=== PATIENT | female | born 1955 | race Caucasian/White ===

== ENCOUNTER 2016-07-16 21:17 | Emergency (ER) | payer BC ==
--- NOTE | 2016-07-16 21:24 | PDOC ---
History of Present Illness - General Chief Complaint: Pain, Acute Stated Complaint: LLQ PAIN RADIATING INTO BACK Time Seen by Provider: 07/16/16 21:23 - History of Present Illness Initial Comments: 07/16/16 22:36 This otherwise healthy 61-year-old woman presents with one-week history of intermittent left lower quadrant abdominal/left flank pain. Pain began suddenly awakening her from sleep one week ago. Since then, the pain has been intermittent, worse after eating and better when patient is in the prone position. She also has had intermittent mild nausea with a few episodes of vomiting (no hematemesis/coffee grounds). She has been constipated during this time, moving small amounts of hard stool (last BM today). Patient states that she has felt "bloated" for the last week No fever or chills noted. She denies dysuria/urinary frequency or hematuria. No previous history of this type of pain. She has not had previous colonoscopy and does not know if she has diverticular disease. No history of kidney stones or other renal issues. Patient has a long history of obesity and has been part of a weight loss program for the last 6 months: States that she has lost approximatelly 50 pounds Past medical history Obesity Hyperreactive airway Medication Albuterol inhaler as needed Past History - Past Medical History Allergies/Adverse Reactions: Allergies Allergy/AdvReac Type Severity Reaction Status Date / Time No Known Allergies Allergy Verified 07/16/16 21:18 Home Medications: Ambulatory Orders Albuterol Sulfate Inhaler - [Ventolin HFA Inhaler -] 1 - 2 inh PO QID PRN Oxycodone HCl/Acetaminophen [Percocet 5-325 mg Tablet] 1 tab PO Q6H PRN #10 tablet MDD 4 tabs 07/16/16 Tamsulosin HCl [Flomax] 0.4 mg PO DAILY #20 cap.er.24h 07/16/16 Anemia: No Asthma: No (HYPER-REACTIVE AIRWAY NO DX OF ASTHMA) Cancer: No Cardiac Disorders: No CVA: No COPD: No CHF: No Dementia: No Diabetes: No GI Disorders: No Disorders: No HTN: No Hypercholesterolemia: No Liver Disease: No Seizures: No Thyroid Disease: No - Surgical History Abdominal Surgery: No Appendectomy: No Cardiac Surgery: No Cholecystectomy: No Lung Surgery: No Neurologic Surgery: No Orthopedic Surgery: Yes (Left Knee Arthroscopy) - Psycho/Social/Smoking Cessation Hx Smoking History: Never smoked Hx Alcohol Use: Yes (SOCIAL) Drug/Substance Use Hx: No Substance Use Type: Alcohol Hx Substance Use Treatment: No Review of Systems - Review of Systems Able to Perform ROS?: Yes Comments:: 12 point review of systems is negative except for what is noted in the history of present illness *Physical Exam - Physical Exam Comments: GENERAL: The patient is awake, alert, and fully oriented;mild distress secondary to left flank pain HEAD: Normal with no signs of trauma. EYES: Pupils equal, round and reactive to light, extraocular movements intact, sclera anicteric, conjunctiva clear with no pallor. ENT: moist mucous membranes. Ears normal, nares patent, oropharynx clear without exudates. NECK: Normal range of motion, supple without lymphadenopathy, JVD, or masses. LUNGS: Breath sounds equal, clear to auscultation bilaterally. No wheeze/ crackles HEART: Regular rate and rhythm, normal S1 and S2 without murmur or rub. ABDOMEN: Soft/nontender/nondistended. BS wnl. mild LLQ tenderness No guarding or rebound. No palpable masses. No hepatosplenomegaly. EXTREMITIES: Normal range of motion, no edema. No clubbing or cyanosis. No cords, erythema, or tenderness. NEUROLOGICAL: Cranial nerves II through XII grossly intact. Normal speech, normal gait. PSYCH: Normal mood, normal affect. SKIN: Warm, Dry, normal turgor, no rashes or lesions noted. ED Treatment Course - LABORATORY CBC & Chemistry Diagram: 07/16/16 22:00 07/16/16 22:00 Progress Note - Progress Note Progress Note: UA shows 5-10 RBC/ 5-10 WBC/ few epi//few bact Patient given 30mg Toradol IV and 1 liter NS IV CBC/ Chemistry profile sent. Medical Decision Making - Medical Decision Making Patient reports significant relief in her pain after Toradol IV. Noncontrast renal stone protocol CT performed. Study reveals a 6 mm calcification within the proximal third of the left ureter with a mild degree of hydronephrosis/hydroureter proximal to the stone. There are 2 small additional calcifications within the lower pole of the left collecting system. No other abnormalities of the genitourinary tract are present. No other significant abnormalities seen on the study. Results discussed with the patient. Patient states that she is mildly nauseous but does not need any medication at this time. Also, pain is tolerable. Patient given Flomax 0.4 mg by mouth. Patient has never seen a urologist. Dr. Gallardo urology group referral information will be given to the patient; she has been advised to call the office tomorrow to be seen within the next few days. Because the size of her ureteral stone is at the borderline level for possible need of intervention, timely consultation with urology is advised. Meanwhile, patient will have prescriptions for Percocet 5/325 as needed for severe pain (prescription for #10 tabs transmitted to pharmacy) and Flomax 0.4 mg daily. She should drink plenty of fluids. She should return to the ER if she has severe, persistent pain or develops vomiting/fever. *DC/Admit/Observation/Transfer Diagnosis at time of Disposition: Renal colic on left side - Discharge Dispostion Disposition: HOME Condition at time of disposition: Stable - Prescriptions Prescriptions: Tamsulosin HCl [Flomax] 0.4 mg PO DAILY #20 cap.er.24h Oxycodone HCl/Acetaminophen [Percocet 5-325 mg Tablet] 1 tab PO Q6H PRN #10 tablet MDD 4 tabs PRN Reason: Severe Pain - Referrals Referrals: Kali Gallardo MD [Staff Physician] - Call tomorrow - Patient Instructions Printed Discharge Instructions: Kidney Stones -- Adult Additional Instructions: drink plenty of water flomax 0.4mg daily Motrin/Aleve/Tylenol as needed for mild to moderate pain Percocet 5/325 as needed for severe pain followup with Dr Paulina madsen(urology): call tomorrow return to ER if pain is severe or vomiting occurs
[2016-07-16 21:29] VITALS: BP 149/88; PULSE 92; TEMP 97.7; BMI 40.9
[2016-07-16 21:38] LABS: PH,URINE 5.5 (4.5-8); URINE APPEARANCE Clear; URINE BILIRUBIN 1+ (NEGATIVE); URINE BLOOD Trace-intact (NEGATIVE); URINE COLOR YELLOW; URINE GLUCOSE (UA) Negative (NEGATIVE); URINE KETONE 1+ (NEGATIVE); URINE LEUK ESTERASE 1+ (NEGATIVE); URINE NITRITE Negative (NEGATIVE); URINE PROTEIN 1+ (NEGATIVE); URINE UROBILINOGEN 0.2 E.U/dl (0.2-1.0)
[2016-07-16] MEDS ORDERED: KETOROLAC TROMETHAMINE 30 MG/1 ML VIAL ONE (21:56)
[2016-07-16] MEDS ORDERED: SODIUM CHLORIDE 1,000 ML IV STA (21:56)
[2016-07-16] MEDS ORDERED: KETOROLAC TROMETHAMINE 30 MG/1 ML VIAL IVPUSH ONE (21:56)
[2016-07-16 22:08] LABS: BASOPHIL 0.4 % (0-2.0); MCHC 32.3 g/dl (32.0-36.0); MEAN CELL VOLUME 92.9 fl (80-96); MEAN PLT VOLUME 8.6 fl (7.5-11.1); NEUTROPHILS 60.9 % (42.8-82.8); PLATELET COUNT 248 K/MM3 (134-434); RDW 12.5 % (11.6-15.6)
[2016-07-16 22:11] LABS: URINE BACTERIA FEW /hpf (NEGATIVE)
[2016-07-16 22:25] LABS: ALBUMIN 4.4 g/dl (3.5-5.0); ALK PHOS 74 U/L (32-92); ANION GAP 12 (8-16); BILIRUBIN,TOTAL 0.5 mg/dl (0.2-1.0); CO2 28 mmol/L (22-28); CREATININE 0.9 mg/dl (0.6-1.3); GLUCOSE,RANDOM 108 mg/dl (74-106); SGOT/AST 25 U/L (10-42); SGPT/ALT 21 U/L (10-40); TOT PROT 7.5 g/dl (6.4-8.3)
[2016-07-16] MEDS ORDERED: TAMSULOSIN HCL 0.4 MG CAP.ER.24H (FP) ONE (23:35)
[2016-07-16] MEDS ORDERED: TAMSULOSIN HCL 0.4 MG CAP.ER.24H (FP) PO ONE (23:42)
[2016-07-16] MEDS ORDERED: OXYCODONE/APAP 5/325MG COMBO TABLET ONE (23:43)
== END 2016-07-16 23:51 | disposition home or self-care (01) ==
LOC: FER 21:17
PROC: 3E0333Z Introduction of Anti-inflammatory into Peripheral Vein, Percutaneous Approach (ICD-10-PCS; principal; 2016-07-16)
PROC: 3E0337Z Introduction of Electrolytic and Water Balance Substance into Peripheral Vein, Percutaneous Approach (ICD-10-PCS; 2016-07-16)
DX: N23 Unspecified renal colic (principal); J98.9 Respiratory disorder, unspecified; E66.9 Obesity, unspecified; Z68.41 Body mass index [BMI] 40.0-44.9, adult
CPT/HCPCS: 36415; 74176; 80053; 81003; 81015; 85025; 99281-25

== ENCOUNTER 2023-02-22 19:09 | Emergency (ER) | payer OTHER ==
[2023-02-22 19:45] VITALS: BP 140/66; PULSE 88; RESP 16; TEMP 98.4; BMI 29.5
[2023-02-22] MEDS ORDERED: RABIES VACCINE (PCEC)/PF 2.5 UNIT/VIAL IM ONE ×2 (19:46→19:55)
[2023-02-22] MEDS ORDERED: RABIES IMMUNE GLOBULIN 300 UNITS/1 ML VIAL IM ONE (19:46)
== END 2023-02-22 20:40 | disposition home or self-care (01) ==
LOC: FER 19:09
PROC: 3E0234Z Introduction of Serum, Toxoid and Vaccine into Muscle, Percutaneous Approach (ICD-10-PCS; principal; 2023-02-22)
PROC: 3E0234Z Introduction of Serum, Toxoid and Vaccine into Muscle, Percutaneous Approach (ICD-10-PCS; 2023-02-22)
DX: Z20.3 Contact with and (suspected) exposure to rabies (principal)
CPT/HCPCS: 90375; 90675; 99284-25

== ENCOUNTER 2023-02-25 11:18 | Emergency (ER) | payer OTHER ==
[2023-02-25 11:24] VITALS: BP 119/72; PULSE 88; RESP 15; TEMP 98.5; BMI 29.5
[2023-02-25] MEDS ORDERED: RABIES VACCINE (PCEC)/PF 2.5 UNIT/VIAL IM ONE ×2 (11:33→11:35)
== END 2023-02-25 11:47 | disposition home or self-care (01) ==
LOC: FER 11:18
PROC: 3E0234Z Introduction of Serum, Toxoid and Vaccine into Muscle, Percutaneous Approach (ICD-10-PCS; principal; 2023-02-25)
DX: Z20.3 Contact with and (suspected) exposure to rabies (principal)
CPT/HCPCS: 90675; 99281-25

== ENCOUNTER 2023-04-14 11:11 | Inpatient (IN) | payer OTHER, MEDICARE ==
[2023-04-14] MEDS ORDERED: SODIUM CHLORIDE 1,000 ML IV ONE ×2 (11:46→15:06)
[2023-04-14] MEDS ORDERED: MECLIZINE HCL 25 MG TABLET (FP) PO ONE (11:46)
[2023-04-14] MEDS ORDERED: METOCLOPRAMIDE HCL INJECTION 10 MG/2 ML VIAL IVPUSH ONE (11:46)
[2023-04-14] MEDS ORDERED: MECLIZINE HCL 25 MG TABLET (FP) ONE (11:53)
[2023-04-14] MEDS ORDERED: METOCLOPRAMIDE HCL INJECTION 10 MG/2 ML VIAL ONE (11:53)
[2023-04-14 12:09] LABS: HEMATOCRIT 41.4 % (32.4-45.2); HEMOGLOBIN 13.6 G/dL (10.7-15.3); MCH 30.7 pg (25.7-33.7); MCHC 32.9 g/dl (32.0-36.0); MEAN CELL VOLUME 93.2 fl (80-96); PLATELET COUNT 221.2 10^3/uL (134-434); RBC 4.44 10^6/uL (3.60-5.2); RDW 14.1 % (11.6-15.6); WHITE BLOOD COUNT 6.8 10^3/uL (4.0-10.8)
[2023-04-14 12:44] LABS: ALBUMIN 3.9 g/dl (3.4-5.0); BILIRUBIN,TOTAL 0.5 mg/dl (0.2-1); CALCIUM 9.6 mg/dl (8.5-10.1); POTASSIUM 3.7 mmol/L (3.5-5.1); TOT PROT 6.1 g/dl (6.4-8.2)
[2023-04-14 12:46] LABS: PLATELET ESTIMATE ADEQUATE
[2023-04-14] MEDS ORDERED: ALBUTEROL SO4 0.083% IH SOL 2.5 MG/3 ML VIAL.NEB. NEB PRN (18:38)
[2023-04-14] MEDS ORDERED: SODIUM CHLORIDE 250 ML IV STA (20:48)
[2023-04-14 22:28] VITALS: BMI 28.5
[2023-04-15] MEDS ORDERED: ACETAMINOPHEN 500 MG TABLET (FP) PO PRN (07:45)
[2023-04-15] MEDS ORDERED: ALBUTEROL SO4 0.083% IH SOL 2.5 MG/3 ML VIAL.NEB. NEB PRN (07:46)
[2023-04-15 07:49] LABS: HEMATOCRIT 39.9 % (32.4-45.2); HEMOGLOBIN 12.8 G/dL (10.7-15.3); MCH 30.2 pg (25.7-33.7); MCHC 32.1 g/dl (32.0-36.0); MEAN PLT VOLUME 8.9 fl (7.5-11.1); PLATELET COUNT 199.4 10^3/uL (134-434); RBC 4.24 10^6/uL (3.60-5.2); RDW 14.5 % (11.6-15.6); WHITE BLOOD COUNT 4.4 10^3/uL (4.0-10.8)
[2023-04-15 08:48] LABS: ALBUMIN 3.6 g/dl (3.4-5.0); BILIRUBIN,TOTAL 0.5 mg/dl (0.2-1); CALCIUM 8.7 mg/dl (8.5-10.1); CREATININE 0.8 mg/dl (0.6-1.3); MAGNESIUM 2.1 mg/dL (1.8-2.4); POTASSIUM 3.8 mmol/L (3.5-5.1); TOT PROT 5.4 g/dl (6.4-8.2)
[2023-04-15] MEDS: MONTELUKAST NA 5 MG TAB.CHEW PO SCH (09:39)
[2023-04-15] MEDS: ENOXAPARIN NA (PORCINE) 40 MG/0.4 ML DISP.SYRIN SQ SCH (09:40)
[2023-04-16 01:57] VITALS: RESP 18
[2023-04-16 07:59] LABS: HEMATOCRIT 37.1 % (32.4-45.2); HEMOGLOBIN 12.2 G/dL (10.7-15.3); MCH 30.7 pg (25.7-33.7); MEAN CELL VOLUME 93.2 fl (80-96); PLATELET COUNT 187.5 10^3/uL (134-434); RBC 3.98 10^6/uL (3.60-5.2); RDW 13.6 % (11.6-15.6); WHITE BLOOD COUNT 4.6 10^3/uL (4.0-10.8)
[2023-04-16 08:44] VITALS: TEMP 98.4
[2023-04-16 08:44] LABS: ALBUMIN 3.5 g/dl (3.4-5.0); BILIRUBIN,TOTAL 0.4 mg/dl (0.2-1); CALCIUM 8.9 mg/dl (8.5-10.1); CREATININE 0.8 mg/dl (0.6-1.3); POTASSIUM 4.3 mmol/L (3.5-5.1); TOT PROT 5.4 g/dl (6.4-8.2)
[2023-04-16 13:57] VITALS: BP 123/61; PULSE 87
[2023-04-16] MEDS: MONTELUKAST NA 5 MG TAB.CHEW PO SCH (14:41)
[2023-04-16] MEDS: ENOXAPARIN NA (PORCINE) 40 MG/0.4 ML DISP.SYRIN SQ SCH (14:42)
== END 2023-04-16 17:45 | disposition home or self-care (01) | DRG 316 ==
LOC: FER 11:11 → FM/S 18:08 → OBSVTOIN 18:34 → INTOOBSV 18:34 → UNDODISIN 04-16 17:45 → UNDODISOB 04-16 17:45
PROVIDERS: ADMIT Student in an Organized Health Care Education/Training Program
DX: I95.9 Hypotension, unspecified (principal); J45.909 Unspecified asthma, uncomplicated; F41.8 Other specified anxiety disorders
CPT/HCPCS: 0241U-QW; 36415; 70450-TC; 70498-TC; 71045-TC-FY; 71250-TC; 78452-TC; 80053; 80061; 81003; 81015; 82550; 83735; 84484; 85027; 85379; 93005; 93017; 93306-TC; 99285-25; A9502; G0378; Q9967

== ENCOUNTER 2024-08-01 09:49 | Inpatient (IN) | payer OTHER ==
[2024-08-01 10:49] LABS: INR 1.07 (0.83-1.09); PROTHROMBIN TIME (PATIENT) 12.2 SEC (9.7-13.0)
[2024-08-01 10:50] LABS: HEMATOCRIT 32.3 % (32.4-45.2); HEMOGLOBIN 10.8 G/dL (10.7-15.3); MCHC 33.4 g/dl (32.0-36.0); MEAN CELL VOLUME 92.7 fl (80-96); MEAN PLT VOLUME 9.5 fl (7.5-11.1); RBC 3.48 10^6/uL (3.60-5.2); RDW 13.3 % (11.6-15.6); WHITE BLOOD COUNT 7.5 10^3/uL (4.0-10.8)
[2024-08-01 10:51] LABS: ACTIVATED PTT 27.4 SECONDS (25.2-36.5)
[2024-08-01] MEDS ORDERED: ACETAMINOPHEN INJECTION 100 ML ONE (10:51)
[2024-08-01 10:54] LABS: PLATELET ESTIMATE ADEQUATE
[2024-08-01] MEDS: ACETAMINOPHEN 1000 MG/100 ML BAG IVPB ONE (10:59)
[2024-08-01 11:00] LABS: ALBUMIN 3.7 g/dl (3.4-5.0); BILIRUBIN,TOTAL 0.6 mg/dl (0.2-1); CALCIUM 8.6 mg/dl (8.5-10.1); CREATININE 0.9 mg/dl (0.6-1.3); POTASSIUM 4.6 mmol/L (3.5-5.1); TOT PROT 5.7 g/dl (6.4-8.2)
[2024-08-01] MEDS ORDERED: morphine CARPU-JECT 4 MG/1 ML DISP.SYRIN IVPUSH ONE (15:06)
[2024-08-01] MEDS: morphine CARPU-JECT 2 MG/1 ML DISP.SYRIN IVPUSH ONE (15:10)
[2024-08-01] MEDS ORDERED: TRANEXAMIC ACID 1000 MG/10 ML VIAL ONE (18:03)
[2024-08-01 18:09] LABS: HEMATOCRIT 29.2 % (32.4-45.2); HEMOGLOBIN 9.9 G/dL (10.7-15.3); MCH 31.4 pg (25.7-33.7); MCHC 33.9 g/dl (32.0-36.0); MEAN CELL VOLUME 92.6 fl (80-96); MEAN PLT VOLUME 8.9 fl (7.5-11.1); PLATELET COUNT 165.7 10^3/uL (134-434); RBC 3.15 10^6/uL (3.60-5.2); RDW 13.8 % (11.6-15.6)
[2024-08-01] MEDS: SODIUM CHLORIDE 0.9% 500 ML INFUS.BAG IV ONE (18:13)
[2024-08-01] MEDS: TRANEXAMIC ACID 1000 MG/10 ML VIAL IVPUSH ONE (18:13)
[2024-08-01 18:30] LABS: PLATELET ESTIMATE ADEQUATE
[2024-08-01] MEDS ORDERED: morphine SULFATE 4 MG/ML VIAL ONE (18:51)
[2024-08-01] MEDS: morphine CARPU-JECT 4 MG/1 ML DISP.SYRIN IVPUSH ONE (19:04)
[2024-08-01] MEDS: MUPIROCIN 2% TOPICAL OINTMENT FOR DECOLONIZATION NS SCH (23:20)
[2024-08-01] MEDS: LACTATED RINGERS SOLUTION 1,000 ML/1,000 ML INFUS.BAG IV SCH (23:30)
[2024-08-02] MEDS: TRANEXAMIC ACID 1000 MG/10 ML VIAL IVPUSH ONE ×2 (01:02→10:00)
[2024-08-02 06:44] LABS: INR 1.17 (0.83-1.09); PROTHROMBIN TIME (PATIENT) 12.9 SEC (9.7-13.0)
[2024-08-02 06:47] LABS: ACTIVATED PTT 27.4 SECONDS (25.2-36.5)
[2024-08-02 06:50] LABS: BASO % 0.6 % (0-2.0); EOS % 1.4 % (0-4.5); HEMATOCRIT 25.8 % (32.4-45.2); HEMOGLOBIN 8.6 GM/dL (10.7-15.3); LYMPH % 24.3 % (8-40); MCH 30.8 pg (25.7-33.7); MCHC 33.2 g/dl (32.0-36.0); MEAN CELL VOLUME 92.8 fl (80-96); MEAN PLT VOLUME 8.7 fl (7.5-11.1); MONO % 10.1 % (3.8-10.2); NEUT % 63.6 % (42.8-82.8); PLATELET COUNT 142 10^3/uL (134-434); RBC 2.78 M/mm3 (3.60-5.2); RDW 13.2 % (11.6-15.6); WHITE BLOOD COUNT 4.9 K/mm3 (4.0-10.0)
[2024-08-02 07:00] LABS: ALBUMIN 3.1 g/dl (3.4-5.0); BLOOD UREA NITROGEN 24.1 mg/dL (7-18); CALCIUM 8.3 mg/dL (8.5-10.1)
[2024-08-02 07:04] LABS: CREATININE 0.7 mg/dL (0.55-1.3); PHOSPHOROUS 3.8 mg/dL (2.5-4.9)
[2024-08-02 07:05] LABS: BILIRUBIN,TOTAL 0.7 mg/dL (0.2-1); TOT PROT 5.4 g/dl (6.4-8.2)
[2024-08-02] MEDS: BUDESONIDE/FORMETEROL FUMARATE 160/4.5 mcg INHALER IH SCH (09:59)
[2024-08-02] MEDS: ACETAMINOPHEN 1000 MG/100 ML BAG IVPB PRN (10:12)
[2024-08-02 12:55] LABS: BASO % 0.3 % (0-2.0); EOS % 0.8 % (0-4.5); HEMATOCRIT 25.6 % (32.4-45.2); HEMOGLOBIN 8.5 GM/dL (10.7-15.3); LYMPH % 15.3 % (8-40); MCH 30.3 pg (25.7-33.7); MCHC 33.1 g/dl (32.0-36.0); MEAN CELL VOLUME 91.7 fl (80-96); MEAN PLT VOLUME 8.8 fl (7.5-11.1); MONO % 9.9 % (3.8-10.2); NEUT % 73.7 % (42.8-82.8); PLATELET COUNT 147 10^3/uL (134-434); RBC 2.79 M/mm3 (3.60-5.2); RDW 13.3 % (11.6-15.6); WHITE BLOOD COUNT 5.8 K/mm3 (4.0-10.0)
[2024-08-02 18:23] LABS: BASO % 0.5 % (0-2.0); EOS % 0.5 % (0-4.5); HEMATOCRIT 23.5 % (32.4-45.2); HEMOGLOBIN 7.9 GM/dL (10.7-15.3); LYMPH % 17.9 % (8-40); MCH 30.6 pg (25.7-33.7); MCHC 33.7 g/dl (32.0-36.0); MEAN CELL VOLUME 91.1 fl (80-96); MEAN PLT VOLUME 8.2 fl (7.5-11.1); MONO % 10.9 % (3.8-10.2); NEUT % 70.2 % (42.8-82.8); PLATELET COUNT 136 10^3/uL (134-434); RBC 2.58 M/mm3 (3.60-5.2); WHITE BLOOD COUNT 5.9 K/mm3 (4.0-10.0)
[2024-08-02] MEDS: CHLORHEXIDINE GLUCONATE 4% CLEANSER FOR DECOLONIZATION TP SCH (21:37)
[2024-08-02] MEDS: HYDROmorphone HCL CARPU-JECT 2 MG/1 ML DISP.SYRIN IVPUSH PRN (22:59)
[2024-08-03 00:33] LABS: BASO % 0.4 % (0-2.0); EOS % 0.9 % (0-4.5); HEMATOCRIT 23.5 % (32.4-45.2); HEMOGLOBIN 7.9 GM/dL (10.7-15.3); LYMPH % 16.1 % (8-40); MCH 30.2 pg (25.7-33.7); MCHC 33.4 g/dl (32.0-36.0); MEAN CELL VOLUME 90.5 fl (80-96); MEAN PLT VOLUME 8.5 fl (7.5-11.1); MONO % 11.1 % (3.8-10.2); NEUT % 71.5 % (42.8-82.8); PLATELET COUNT 139 10^3/uL (134-434); RDW 13.3 % (11.6-15.6); WHITE BLOOD COUNT 6.7 K/mm3 (4.0-10.0)
[2024-08-03 06:52] LABS: CALCIUM 8.2 mg/dL (8.5-10.1)
[2024-08-03 06:53] LABS: BLOOD UREA NITROGEN 14.3 mg/dL (7-18); MAGNESIUM 1.7 mg/dL (1.8-2.4)
[2024-08-03 06:56] LABS: CREATININE 0.5 mg/dL (0.55-1.3); PHOSPHOROUS 3.4 mg/dL (2.5-4.9)
[2024-08-03 06:57] LABS: BILIRUBIN,TOTAL 0.9 mg/dL (0.2-1)
[2024-08-03 06:58] LABS: TOT PROT 5.6 g/dl (6.4-8.2)
[2024-08-03 07:08] LABS: BASO % 0.3 % (0-2.0); EOS % 1.1 % (0-4.5); HEMATOCRIT 25.4 % (32.4-45.2); HEMOGLOBIN 8.6 GM/dL (10.7-15.3); MCH 30.7 pg (25.7-33.7); MCHC 33.9 g/dl (32.0-36.0); MEAN CELL VOLUME 90.7 fl (80-96); MEAN PLT VOLUME 8.6 fl (7.5-11.1); MONO % 8.8 % (3.8-10.2); NEUT % 83.8 % (42.8-82.8); PLATELET COUNT 146 10^3/uL (134-434); RDW 13.1 % (11.6-15.6); WHITE BLOOD COUNT 8.8 K/mm3 (4.0-10.0)
[2024-08-03] MEDS: ACETAMINOPHEN 1000 MG/100 ML BAG IVPB PRN (08:18)
[2024-08-03] MEDS: MAGNESIUM 2GM/50ML STERILE WATER IVPB IVPB ONE (09:06)
[2024-08-03] MEDS ORDERED: DOCUSATE SODIUM 100 MG CAPSULE (FP) PO PRN (10:02)
[2024-08-03] MEDS: POLYETHYLENE GLYCOL (HEALTHYLAX) 3350 17 GM PACKET PO SCH (10:16)
[2024-08-03] MEDS ORDERED: ERGOCALCIFEROL (VIT D2) 50,000 UNIT (1.25 MG) CAPSULE PO SCH (11:00)
[2024-08-03] MEDS: HYDROmorphone HCL CARPU-JECT 2 MG/1 ML DISP.SYRIN IVPUSH PRN (12:04)
[2024-08-03 12:41] VITALS: BMI 23.8
[2024-08-03] MEDS: ALBUTEROL SO4 HFA INHALER IH SCH (13:47)
[2024-08-03 15:43] LABS: HEMATOCRIT 23.4 % (32.4-45.2); HEMOGLOBIN 7.8 GM/dL (10.7-15.3); MCH 30.4 pg (25.7-33.7); MCHC 33.4 g/dl (32.0-36.0); MEAN PLT VOLUME 8.5 fl (7.5-11.1); PLATELET COUNT 142 10^3/uL (134-434); RBC 2.57 M/mm3 (3.60-5.2); RDW 13.1 % (11.6-15.6)
[2024-08-03] MEDS: ERGOCALCIFEROL (VIT D2) 50,000 UNIT (1.25 MG) CAPSULE PO SCH (16:20)
[2024-08-03] MEDS: BUDESONIDE/FORMETEROL FUMARATE 160/4.5 mcg INHALER IH SCH (21:15)
[2024-08-03] MEDS: SENNOSIDES 8.8 MG/5 ML SYRUP PO SCH (21:28)
[2024-08-03] MEDS: MONTELUKAST NA 10 MG TABLET PO SCH (21:29)
[2024-08-04 06:42] LABS: BASO % 0.4 % (0-2.0); EOS % 3.6 % (0-4.5); HEMATOCRIT 23.7 % (32.4-45.2); HEMOGLOBIN 7.9 GM/dL (10.7-15.3); LYMPH % 14.2 % (8-40); MCH 30.3 pg (25.7-33.7); MCHC 33.2 g/dl (32.0-36.0); MEAN CELL VOLUME 91.4 fl (80-96); MEAN PLT VOLUME 8.7 fl (7.5-11.1); MONO % 11.1 % (3.8-10.2); NEUT % 70.7 % (42.8-82.8); PLATELET COUNT 152 10^3/uL (134-434); RBC 2.59 M/mm3 (3.60-5.2); RDW 12.9 % (11.6-15.6); WHITE BLOOD COUNT 5.8 K/mm3 (4.0-10.0)
[2024-08-04 06:53] LABS: POTASSIUM 3.8 mmol/L (3.5-5.1)
[2024-08-04 06:56] LABS: ALBUMIN 2.8 g/dl (3.4-5.0); BLOOD UREA NITROGEN 10.1 mg/dL (7-18); CALCIUM 8.1 mg/dL (8.5-10.1); MAGNESIUM 1.9 mg/dL (1.8-2.4)
[2024-08-04 06:59] LABS: CREATININE 0.5 mg/dL (0.55-1.3); PHOSPHOROUS 2.5 mg/dL (2.5-4.9)
[2024-08-04 07:01] LABS: BILIRUBIN,TOTAL 0.7 mg/dL (0.2-1); TOT PROT 5.2 g/dl (6.4-8.2)
[2024-08-04 16:23] VITALS: RESP 18
[2024-08-04 16:37] LABS: BASO % 0.3 % (0-2.0); HEMATOCRIT 24.5 % (32.4-45.2); HEMOGLOBIN 8.2 GM/dL (10.7-15.3); LYMPH % 11.6 % (8-40); MCH 30.3 pg (25.7-33.7); MCHC 33.4 g/dl (32.0-36.0); MEAN CELL VOLUME 90.7 fl (80-96); MEAN PLT VOLUME 8.5 fl (7.5-11.1); MONO % 8.9 % (3.8-10.2); NEUT % 77.2 % (42.8-82.8); PLATELET COUNT 166 10^3/uL (134-434); RDW 13.3 % (11.6-15.6)
[2024-08-04] MEDS ORDERED: ACETAMINOPHEN INJECTION 100 ML ONE (18:03)
[2024-08-04] MEDS: ACETAMINOPHEN 1000 MG/100 ML BAG IVPB PRN (18:18)
[2024-08-04] MEDS: oxyCODONE HCL 5 MG TABLET PO PRN (21:44)
[2024-08-05 08:30] LABS: BASO % 0.3 % (0-2.0); EOS % 2.1 % (0-4.5); HEMATOCRIT 23.3 % (32.4-45.2); HEMOGLOBIN 7.8 GM/dL (10.7-15.3); LYMPH % 11.8 % (8-40); MCH 30.5 pg (25.7-33.7); MCHC 33.6 g/dl (32.0-36.0); MEAN CELL VOLUME 90.7 fl (80-96); MEAN PLT VOLUME 8.6 fl (7.5-11.1); MONO % 10.6 % (3.8-10.2); NEUT % 75.2 % (42.8-82.8); PLATELET COUNT 178 10^3/uL (134-434); RBC 2.57 M/mm3 (3.60-5.2); RDW 13.2 % (11.6-15.6); WHITE BLOOD COUNT 6.5 K/mm3 (4.0-10.0)
[2024-08-05 08:45] LABS: POTASSIUM 3.8 mmol/L (3.5-5.1)
[2024-08-05 08:55] LABS: ALBUMIN 2.6 g/dl (3.4-5.0); BLOOD UREA NITROGEN 8.1 mg/dL (7-18); MAGNESIUM 1.9 mg/dL (1.8-2.4)
[2024-08-05 08:57] LABS: PHOSPHOROUS 3.1 mg/dL (2.5-4.9)
[2024-08-05 08:58] LABS: BILIRUBIN,TOTAL 0.6 mg/dL (0.2-1); CREATININE 0.5 mg/dL (0.55-1.3)
[2024-08-05 08:59] LABS: TOT PROT 5.1 g/dl (6.4-8.2)
[2024-08-05 12:51] VITALS: TEMP 98.2
[2024-08-05] MEDS ORDERED: oxyCODONE HCL 5 MG TABLET PO PRN ×2 (14:08→14:54)
[2024-08-05] MEDS ORDERED: traMADol HCL 50 MG TABLET PO PRN ×2 (14:10→14:54)
[2024-08-05] MEDS ORDERED: ACETAMINOPHEN 1000 MG/100 ML BAG IVPB PRN (14:55)
[2024-08-05 16:20] VITALS: BP 102/55
[2024-08-05 17:17] VITALS: PULSE 102
== END 2024-08-05 17:13 | disposition home or self-care (01) | DRG 814 ==
LOC: FER 09:49 → JICU 21:00
PROVIDERS: ADMIT Internal Medicine; ATTEND Internal Medicine
DX: D73.5 Infarction of spleen (principal); K66.1 Hemoperitoneum; D62 Acute posthemorrhagic anemia; D86.9 Sarcoidosis, unspecified; J45.909 Unspecified asthma, uncomplicated; F41.9 Anxiety disorder, unspecified; K59.00 Constipation, unspecified; E83.42 Hypomagnesemia; K83.8 Other specified diseases of biliary tract; K76.89 Other specified diseases of liver; N20.0 Calculus of kidney; K44.9 Diaphragmatic hernia without obstruction or gangrene; K57.90 Diverticulosis of intestine, part unspecified, without perforation or abscess without bleeding; E56.9 Vitamin deficiency, unspecified
CPT/HCPCS: 36415; 70450-TC; 74177-TC; 76705-TC; 76775-TC; 80053; 81003; 81015; 82550; 83605; 83690; 83735; 84100; 84443; 84484; 85025; 85027; 85610; 85730; 86850; 86900; 86901; 86922; 87077; 87086; 93005; 97116-GP; 97162-GP; 99285-25; J0131; Q9967